=== PATIENT | female | born 1965 | race Hispanic/Latino ===

== ENCOUNTER 2021-05-05 18:51 | Emergency (ER) | payer SELFPAY ==
--- OUTSIDE RECORDS SUMMARY | 2021-05-05 18:54 | XMS REPORT | Continuity of Care Document ---
:1965 Author Organization [facility] t Address [address] [place] [address] Care Team Providers Name Role Phone Trung Hammonds [facility] Primary Care Physic vargas Lisa Talley DO Attending Clinician Clementina Saldaña MD Attending Clinician Payers Payer Name Policy Type Policy Effective Date Expiration Date Sour ce Number COVID19 [facility] [id number] 2019 [employer] UNINSURED 00:00:00 Hospital TESTING AND TREATMENT [id number] [facility] UNINSURED TESTING AND TREATMENT [id number] lf-Pay Problems Condition Condition Condition Status Onset Resolution Last Treating Co mments Source Name Details Category Date Date Treatment Clinician Date No known No known Disease Unive rs active active ity of problems problems [place] [facility] [place] Allergies, Adverse Reactions, Alerts Allergy Allergy Status Severity Reaction(s) Onset Inactive Treating Comm ents Source Name Type Date Date Clinician Enoc Padilla Active Other - See bloating Univers ne ty to comments 04-02 ity of adverse 00:00: [place] reaction 00 Medical s Branch Social History Social Habit Start Date Stop Date Quantity Comments Source Tobacco use and 2021-05-04 2021-05-04 Never used [facility] [place] exposure 00:00:00 00:00:00 Medical Branch Sex [birth year] [facility] 00:00:00 00:00:00 Smoking Status Start Date Stop Date Source Unknown if ever smoked [facility] Never smoker [facility] Medical Branch Medications Ordered Filled Start Stop Current Ordering Indication Dosage Frequency Signature Comments Components Source Medication Medication Date Date Medication? Clinician (SIG) Name Name hydrOXYzine Yes 25mg Take 1 Univers 25 mg 5-04 tablet by ity of tablet 00:00: mouth [place] 00 every 6 Medical (six) Branch hours as needed for Itching or Anxiety. famotidine Yes 20mg Take 1 Univers (PEPCID) 20 5-04 tablet by ity of mg tablet 00:00: mouth 2 [place] 00 (two) Medical times Branch daily. Skin Yes Use as Univer s Cleanser 5-04 directed ity of Combination 00:00: [place] No.8 00 Medical (ZANFEL) Branch Clsr albuterol Yes [id number] 2{puff} Inhale 2 Univers 90 1-08 Puffs ity of mcg/actuati 00:00: every 4 [place] as on inhaler 00 (four) Medical hours as Branch needed for Wheezing or Shortness of Breath. montelukast 2019-0 Yes 10mg Take 10 mg Univers 10 mg 8-07 by mouth ity of tablet 19:42: daily. [place] 56 Medical Branch fluticasone 2020-0 Yes [id number] 1{puff} Inhale 1 Univers propion-patricia 8-07 Puff 2 ity of meterol 00:00: (two) [place] 250-50 00 times Medical mcg/dose daily. Branch inhalation disk albuterol 2020-0 Yes [id number] 2.5mg Inhale 3 Univers 2.5 mg /3 7-29 mL every 6 ity of mL (0.083 00:00: (six) [place] %) 00 hours as Medical nebulizer needed for Bran ch solution Wheezing or Shortness of Breath. May also nebulize one extra every 6 hours. benzonatate 2020-0 Yes [id number] 100mg Take 1 Univers 100 mg 7-29 capsule by ity of capsule 00:00: mouth 3 [place] 00 (three) Medical times Branch daily as needed for Cough. Immunizations Ordered Immunization Filled Immunization Date Status Commen ts Source Name Name PFIZER COVID-19 MRNA 2020-09-17 Completed Meth odist VACCINATION 00:00:00 [facility] PFIZER COVID-19 MRNA 2020-08-27 Completed Meth odist VACCINATION 00:00:00 Hospital Vital Signs Vital Name Observation Time Observation Value Comments Source Systolic blood 2021-05-04 19:45:00 135 mm[Hg] Univer sity of pressure [facility] Diastolic blood 2021-05-04 19:45:00 77 mm[Hg] Unive rsity of pressure [facility] Heart rate 2021-05-04 19:45:00 84 /min [facility] Body temperature 2021-05-04 19:45:00 37.28 [facility] Respiratory rate 2021-05-04 19:45:00 18 /min [facility] Body weight 2021-05-04 19:45:00 [facility] 2021-05-04 19:45:00 19.53 kg/m2 [facility] Oxygen saturation in 2021-05-04 19:45:00 100 /min [facility] Arterial blood by [facility] Pulse oximetry Branch Procedures Procedure Date / Time Performed Performing Clinician [facility] e NOTICE OF PRIVACY 2021-05-04 19:21:11 Doctor Unassigned, No [facility] Name [facility] CONSENT/REFUSAL FOR 2021-05-04 19:20:50 Doctor Unassigned, No [facility] AND Name [facility] [place] TREATMENT Plan of Care Planned Activity Planned Date Details Comments Source Future Scheduled Test Hepatitis C screening [facility] (procedure) [code = 910304263] Future Scheduled Test Screening for malignant [facility] neoplasm of cervix (procedure) [code = 614720509] Future Scheduled Test BREAST CANCER SCREENING [facility] [code = BREAST CANCER SCREENING] Future Scheduled Test COLONOSCOPY SCREENING [facility] [code = COLONOSCOPY SCREENING] Future Scheduled Test SHINGLES VACCINES (#1) [facility] [code = SHINGLES VACCINES (#1)] Future Scheduled Test INFLUENZA VACCINE [code [facility] = INFLUENZA VACCINE] Encounters Start End Encounter Admission Attending Care Care Encounter Source Date/Time Date/Time Type Type Clinicians Facility Department ID 2021-05-04 2021-05-04 Emergency YVES Talley [id number] [facility] [place] [facility] 14:48:00 17:57:00 Shannan Jama [id number] [facility] [id number] [facility] [id number] [facility] 084 Branch 2020-09-17 2020-09-17 Clinical Kayla, [id number] [facility] 14:27:55 14:37:28 Support Rossana Nguyen50.1.[address] [id number] Hospit a .[id number] l .8 2020-09-17 2020-09-17 [facility] [id number] [place] 00:00:00 00:00:[address] 2020-08-27 2020-08-27 Clinical Kayla, [id number] [facility] 14:20:52 16:02:26 Support Rossana Nguyen50.1.[address] [id number] Hospit a .[id number] l .8 2020-08-27 2020-08-27 [facility] [id number] [place] 00:00:00 00:00:[address] Results This patient has no known results.
[2021-05-05] MEDS ORDERED: HYDROCODONE/APAP 10/325 TAB ONE ×2 (22:34→22:39)
[2021-05-05] MEDS ORDERED: LIDOCAINE VISCOUS 2% SOLN 15 ML UDC ONE (22:34)
[2021-05-05] MEDS ORDERED: LIDOCAINE 1% MPF 30 ML VIAL ONE (22:35)
--- NOTE | 2021-05-06 00:23 | ER ---
Nurse's Notes [facility] Name: Cristal Barroso Age: 55 yrs Sex: Female : 1965 Arrival Date: 05/05/2021 Time: 18:54 Bed 25 Private MD: Diagnosis: Scalp Abscess Presentation: 05/05 19:51 Chief complaint: Patient states: on Tuesday she broke out in hives and had sores all iw over her body, now her head has open sores and is swollen, was seen at [facility] , was given medications but pain has gotten worse . Coronavirus screen: At this time, the client does not indicate any symptoms associated with coronavirus-19. Ebola Screen: Patient negative for fever greater than or equal to 101.5 degrees Fahrenheit, and additional compatible Ebola Virus Disease symptoms Patient denies exposure to infectious person. Patient denies travel to an Ebola-affected area in the 21 days before illness onset. No symptoms or risks identified at this time. Onset: The symptoms/episode began/occurred 2 day(s) ago. Anaphylaxis evaluation, no signs or symptoms of anaphylaxis were noted. Initial Sepsis Screen: Does the patient meet any 2 criteria? No. Patient's initial sepsis screen is negative. Does the patient have a suspected source of infection? No. Patient's initial sepsis screen is negative. Risk Assessment: Do you want to hurt yourself or someone else? Patient reports no desire to harm self or others. Onset of symptoms was May 02, 2021. 19:51 Method Of Arrival: Wheelchair iw 19:51 Acuity: EDA 3 iw Historical: - Allergies: 19:56 loratadine; iw - Home Meds: 19:56 inhaler [Active]; iw - PMHx: 19:56 None; iw - PSHx: 19:56 None; iw - Immunization history:: Client reports receiving the 2nd dose of the Covid vaccine. - Social history:: Smoking status: Patient denies any tobacco usage or history of. Screenin:38 Abuse screen: Denies threats or abuse. Nutritional screening: No deficits noted. em Tuberculosis screening: No symptoms or risk factors identified. Fall Risk None identified. Assessment: 22:30 General: Appears in no apparent distress. uncomfortable, Behavior is calm, cooperative, em appropriate for age. Pain: Complains of pain in scalp Pain currently is 9 out of 10 on a pain scale. Neuro: Level of Consciousness is awake, alert, obeys commands, Oriented to person, place, time, situation. Cardiovascular: Capillary refill < 3 seconds Patient's skin is warm and dry. Respiratory: Airway is patent Respiratory effort is even, unlabored, Respiratory pattern is regular, symmetrical. Derm: Skin is intact, is healthy with good turgor, Skin is pink, warm \T\ dry. Rash noted that is itchy, red, urticaria. Musculoskeletal: Capillary refill < 3 seconds, Range of motion: intact in all extremities. 05/06 00:49 Respiratory: Breath sounds are clear bilaterally. bs2 Vital Signs: 05/05 19:51 BP 100 / 83; Pulse 75; Resp 16; Temp 98.5; Pulse Ox 100% on R/A; Weight 44.91 kg; iw Height 5 ft. 0 in. (152.40 cm); 05/06 00:49 BP 108 / 75; Pulse 74; Resp 20; Temp 98.6; Pulse Ox 100% ; Pain 7/10; bs2 05/05 19:51 Body Mass Index 19.33 (44.91 kg, 152.40 cm) iw ED Course: 05/05 18:54 Patient arrived in ED. mr 19:56 Triage completed. iw 19:57 Arm band placed on. iw 21:59 Bethel Barrios PA is PHCP. [facility] 21:59 Mejia Hopper MD is Attending Physician. [facility] 22:09 Howard Gonzalez, LEDA is Primary Nurse. em 23:38 Patient has correct armband on for positive identification. em 05/06 00:22 Derrell Fuentes MD is Referral Physician. [facility] 00:48 Assist provider with I \T\ D: of an abscess on bilateral pustules to scalp Set up I\T\D bs 2 tray. Performed by Bethel MYERS Patient tolerated poorly. Patient did not have IV access during this emergency room visit. Administered Medications: 05/05 22:18 Drug: Viscous Lidocaine Liquid (4 %) 10 ml Route: Mucous Membrane; em 23:59 Follow up: Response: No adverse reaction; Marked relief of symptoms em 22:18 Drug: [place] (HYDROcodone-acetaminophen) 10 mg-325 mg 1 tabs Route: PO; em 23:59 Follow up: Response: No adverse reaction; Marked relief of symptoms; Pain is decreased; em RASS: Alert and Calm (0) 05/06 00:05 Drug: Lidocaine-Epinephrine -1%: (1:100,000) 20 ml Volume: 20 ml; Route: Infiltration; em 00:51 Follow up: Response: No adverse reaction bs2 00:10 Drug: Clindamycin 300 mg Route: IM; Site: left gluteus; bs2 00:40 Follow up: Response: No adverse reaction bs2 00:10 Drug: Clindamycin 300 mg Route: IM; Site: right gluteus; bs2 00:10 Drug: Dilaudid (HYDROmorphone) 0.5 mg Route: IM; Site: left gluteus; bs2 00:40 Follow up: Response: No adverse reaction bs2 Outcome: 00:23 Discharge ordered by . roger 00:50 Discharged to home ambulatory, with family. bs2 00:50 Condition: improved 00:50 Discharge instructions given to patient, Instructed on discharge instructions, follow up and referral plans. medication usage, wound care, Demonstrated understanding of instructions, follow-up care, medications, wound care, Prescriptions given X 2. 00:51 Patient left the ED. bs2 Signatures: Bethel Barrios PA PA jmm Rivera, Mary mr Munoz, Edgar, RN RN em Williams, Irene, Antonia Goodwin RN, RN RN bs2 Corrections: (The following items were deleted from the chart) 05/05 19:57 19:56 Allergies: No Known Allergies; [facility] 19:57 19:56 Allergies: No Known Allergies; iw
--- NOTE | 2021-05-06 00:23 | EDPHYS ---
Physician Documentation [facility] Name: Cristal Barroso Age: 55 yrs Sex: Female : 1965 Arrival Date: 05/05/2021 Time: 18:54 Bed 25 Private MD: ED Physician Mejia Hopper HPI: 05/06 00:21 This 55 yrs old Female presents to ER via Wheelchair with complaints of Hives, jmm Wound Infection, Fever. 00:21 The patient presents with an abscess of the scalp. Onset: The symptoms/episode jmm began/occurred gradually, 3 day(s) ago. Possible cause(s):. Associated signs and symptoms: Pertinent positives: swelling, Pertinent negatives: fever. 55-year-old female with no chronic medical conditions presents emerged department with complaints of swelling to her scalp after she suspects insect bites. Patient was seen at clinic today and prescribed antifungal and antibiotics. Historical: - Allergies: 05/05 19:56 loratadine; iw - Home Meds: 19:56 inhaler [Active]; iw - PMHx: 19:56 None; iw - PSHx: 19:56 None; iw - Immunization history:: Client reports receiving the 2nd dose of the Covid vaccine. - Social history:: Smoking status: Patient denies any tobacco usage or history of. ROS: 05/06 00:21 Constitutional: Negative for fever, chills, and weight loss, Cardiovascular: Negative jmm for chest pain, palpitations, and edema, Respiratory: Negative for shortness of breath, cough, wheezing, and pleuritic chest pain. Skin: Positive for abscess. All other systems are negative. Exam: 00:21 Constitutional: This is a well developed, well nourished patient who is awake, alert, jmm and in no acute distress. 00:21 Eyes: EOMI, no conjunctival erythema appreciated ENT: Moist Mucus Membranes Neck: Trachea midline, Supple Chest/axilla: Normal chest wall appearance and motion. Cardiovascular: Regular rate and rhythm. No edema appreciated Respiratory: Normal respirations, no respiratory distress appreciated Abdomen/GI: Non distended, soft Back: Normal ROM 00:21 MS/ Extremity: Moves all extremities, no obvious deformities appreciated, no edema noted to the lower extremities Neuro: Awake and alert, normal gait Psych: Behavior is normal, Mood is normal, Patient is cooperative and pleasant 00:21 Head/face: Multiple pustules noted to the scalp, there is surrounding erythema. 00:21 Skin: Multiple pustules noted to the scalp with surrounding erythema. Vital Signs: 05/05 19:51 BP 100 / 83; Pulse 75; Resp 16; Temp 98.5; Pulse Ox 100% on R/A; Weight 44.91 kg; iw Height 5 ft. 0 in. (152.40 cm); 05/06 00:49 BP 108 / 75; Pulse 74; Resp 20; Temp 98.6; Pulse Ox 100% ; Pain 7/10; bs2 05/05 19:51 Body Mass Index 19.33 (44.91 kg, 152.40 cm) iw MDM: 05/05 22:04 Patient medically screened. [facility] 05/06 00:20 Data reviewed: vital signs, nurses notes. Counseling: I had a detailed discussion with [facility] the patient and/or guardian regarding: the historical points, exam findings, and any diagnostic results supporting the discharge/admit diagnosis, the need for outpatient follow up, to return to the emergency department if symptoms worsen or persist or if there are any questions or concerns that arise at home. ED course: [employer] aware revealed no search results. Administered Medications: 05/05 22:18 Drug: Viscous Lidocaine Liquid (4 %) 10 ml Route: Mucous Membrane; em 23:59 Follow up: Response: No adverse reaction; Marked relief of symptoms em 22:18 Drug: [place] (HYDROcodone-acetaminophen) 10 mg-325 mg 1 tabs Route: PO; em 23:59 Follow up: Response: No adverse reaction; Marked relief of symptoms; Pain is decreased; em RASS: Alert and Calm (0) 05/06 00:05 Drug: Lidocaine-Epinephrine -1%: (1:100,000) 20 ml Volume: 20 ml; Route: Infiltration; em 00:51 Follow up: Response: No adverse reaction bs2 00:10 Drug: Clindamycin 300 mg Route: IM; Site: left gluteus; bs2 00:40 Follow up: Response: No adverse reaction bs2 00:10 Drug: Clindamycin 300 mg Route: IM; Site: right gluteus; bs2 00:10 Drug: Dilaudid (HYDROmorphone) 0.5 mg Route: IM; Site: left gluteus; bs2 00:40 Follow up: Response: No adverse reaction bs2 Disposition: 06:57 Co-signature as Attending Physician, Mejia Hopper MD. ma2 Disposition Summary: 05/06/21 00:23 Discharge Ordered Location: Home [facility] Condition: Stable jmm Diagnosis - Scalp Abscess m Followup: [facility] - With: Derrell Fuentes MD - When: 1 - 2 days - Reason: Recheck today's complaints, Continuance of care, Re-evaluation by your physician Discharge Instructions: - Discharge Summary Sheet [facility] - Skin Abscess [facility] Forms: - Medication Reconciliation Form [facility] - Thank You Letter [facility] - Antibiotic Education [facility] - Prescription Opioid Use [facility] Prescriptions: - Clindamycin HCl 300 mg Oral Capsule - take 1 capsule by ORAL route every 6 hours for 10 days; 40 capsule; Refills: 0, [facility] Product Selection Permitted - Ultram 50 mg Oral Tablet - take 1 tablet by ORAL route every 6 hours As needed; 12 tablet; Refills: 0, [facility] Product Selection Permitted Signatures: Bethel Barrios PA PA [facility] Howard Gonzalez, RN RN Nahomy Gallagher, RN Mejia Sims MD MD ma2 Antonia Cancino, RN RN bs2 Corrections: (The following items were deleted from the chart) 05/05 19:57 19:56 Allergies: No Known Allergies; [facility] 19:57 19:56 Allergies: No Known Allergies; [facility]
[2021-05-06] MEDS ORDERED: CLINDAMYCIN IV 150 MG/ML (4 mL) VIAL ONE (00:38)
[2021-05-06] MEDS ORDERED: HYDROMORPHONE HCL 2 MG/ML inj ONE (00:38)
[2021-05-06 00:57] VITALS: O2SAT 100
[2021-05-06 00:58] VITALS: BP 108/75; TEMP 98.6
== END 2021-05-06 00:51 | disposition home or self-care (01) ==
LOC: ER 18:51
DX: L02.811 Cutaneous abscess of head [any part, except face] (principal); Z88.8 Allergy status to other drugs, medicaments and biological substances
CPT/HCPCS: 96372; 99283; J1170; S0077